=== PATIENT | female | born 1965 | race Caucasian/White ===

== ENCOUNTER → 2019-01-26 | Outpatient (CLI) | payer BC ==
--- NOTE | 2019-01-26 08:56 | US ---
EXAMINATION TYPE: US pelvic complete DATE OF EXAM: 01/26/2019 COMPARISON: NONE CLINICAL HISTORY: N92.0 Excessive/frequent menstruation w/reg cycle. Heavy painful periods x 1 year, fatigue, 0, history of fibroids and ovarian cysts TECHNIQUE: . Transabdominal sonographic images of the pelvis were acquired. Transvaginal sonographi c images were medically necessary to better assess the following anatomy: ovaries and endometrium Date of LMP: 01/20/2019 EXAM MEASUREMENTS: Uterus: 13.1 x 8.9 x 10.2 cm Endometrial Stripe: 0.5 cm Right Ovary: not seen Left Ovary: not seen 1. Uterus: anteverted, enlarged, bulky, heterogeneous with 7.7 x 6.9 x 7.7cm hypoechoic area, probab le fibroid 2. Endometrium: visualized portion appears wnl, limited due to large fibroid 3. Right Ovary: not seen 4. Left Ovary: not seen 5. Bilateral Adnexa: wnl 6. Posterior cul-de-sac: wnl IMPRESSION: Enlarged heterogenous likely fibroid uterus obscuring the endometrium. Visualized portion s of the endometrium are within normal limits. MRI pelvis could further assess the endometrial thickn ess and location of the probable uterine leiomyomas if clinically indicated.
== END | disposition home or self-care (01) ==
LOC: RADUSWWP 08:12
PROVIDERS: ATTEND Family Medicine
DX: N85.2 Hypertrophy of uterus (principal)
CPT/HCPCS: 76830; 76856

== ENCOUNTER → 2019-04-16 | Outpatient (CLI) | payer BC ==
--- NOTE | 2019-04-16 16:53 | US ---
EXAMINATION TYPE: US extremity nonvasc mass RT DATE OF EXAM: 04/16/2019 COMPARISON: NONE CLINICAL HISTORY: R22.41 Swelling, mass and lump, R leg. Patient states feeling a palpable on lower r ight medial leg x few years. Patient states when she states, it can get swollen. Area of concern scanned. No prominent masses or lesions seen. Fluid seen at area of concern anterio r to bone. Contralateral images taken. IMPRESSION: Targeted ultrasound shows no worrisome solid or cystic mass or abnormal fluid collection right lower extremity medially at area of patient concern.
== END | disposition home or self-care (01) ==
LOC: RADUSWWP 15:40
PROVIDERS: ATTEND Family Medicine
DX: R22.41 Localized swelling, mass and lump, right lower limb (principal)

== ENCOUNTER → 2019-04-25 | Outpatient (CLI) | payer BC ==
--- NOTE | 2019-04-25 11:01 | FL ---
EXAMINATION TYPE: FL barium enema DATE OF EXAM: 04/25/2019 COMPARISON: NONE HISTORY: Incomplete colonoscopy yesterday. TECHNIQUE: A double contrast barium enema study is performed. A total of 4 minutes 3 seconds of fluo roscopic time is provided during procedure. 28 spot images are saved. FINDINGS: Preprocedure clinical specialist medical device view of the abdomen shows overall non-obstructive bowel gas pattern. Giovanny e gas prominence of small and large bowel loops consistent with history of colonoscopy one day earlie r is noted. Enema study is performed. There is markedly redundant colon but successful filling to the cecum. Markedly redundant particularly sigmoid colon which is extremely long and tortuous makes evaluation f or polyps suboptimal. No obstructing or constricting lesion is present. No suspicious large polyps ar e clearly identified. Appendix is not opacified and terminal ileum is not refluxed. IMPRESSION: Suboptimal study due to marked redundancy of colon in evaluating for polyps. No obstructi ng or constricting lesion is seen. There is successful opacification to cecum noted.
== END | disposition home or self-care (01) ==
LOC: RADFLMAIN 08:35
PROVIDERS: ATTEND Surgery
DX: K63.5 Polyp of colon (principal)
CPT/HCPCS: 74270

== ENCOUNTER → 2019-04-26 | Outpatient (CLI) | payer BC ==
--- NOTE | 2019-04-26 13:03 | US ---
EXAMINATION TYPE: US thyroid st tissue head/neck DATE OF EXAM: 04/26/2019 COMPARISON: NONE CLINICAL HISTORY: E04.9 Goiter. GLAND SIZE: Right Lobe: cm Overall Parenchyma: Left Lobe: cm Overall Parenchyma: Isthmus Thickness: cm NODULES RIGHT: # of nodules measured on right: 1. X x cm nodule at the pole with margins; . This nodule is and shows . Prior size: x x cm 2. X x cm nodule at the pole with margins; . This nodule is and shows . Prior size: x x cm 3. X x cm nodule at the pole with margins; . This nodule is and shows . Prior size: x x cm 4. X x cm nodule at the pole with margins; . This nodule is and shows . Prior size: x x cm LEFT: # of nodules measured on left: 1. X x cm nodule at the pole with margins; . This nodule is and shows . Prior size: x x cm 2. X x cm nodule at the pole with margins; . This nodule is and shows . Prior size: x x cm 3. X x cm nodule at the pole with margins; . This nodule is and shows . Prior size: x x cm 4. X x cm nodule at the pole with margins; . This nodule is and shows . Prior size: x x cm ISTHMUS: # of nodules measured in the isthmus: 1. X x cm nodule at the pole with margins; . This nodule is and shows . Prior size: x x cm Bilateral neck scanned, no evidence of lymphadenopathy. IMPRESSION: EXAMINATION TYPE: US thyroid st tissue head/neck DATE OF EXAM: 04/26/2019 COMPARISON: NONE CLINICAL HISTORY: E04.9 Goiter. GLAND SIZE: Right Lobe: 4.9 x 1.2 x 1.6 cm Overall Parenchyma: homogenous Left Lobe: 4.6 x x1.3 x x1.3 cm Overall Parenchyma: heterogeneous Isthmus Thickness: 0.6 cm NODULES RIGHT: # of nodules measured on right: 2 1. 1.2 X 0.9 x 1.4 cm solid nodule at the lower pole with well-defined margins; . This nodule is w ider than tall and shows intranodular vascularity. Prior size: no prior 2. 0.7 X 0.8 x 0.8 cm solid nodule at the mid pole with well-defined margins; . This nodule is wide r than tall and shows no intranodular vascularity. Prior size: no prior LEFT: # of nodules measured on left: 0 ISTHMUS: # of nodules measured in the isthmus: 0 Bilateral neck scanned, no evidence of lymphadenopathy. IMPRESSION: Nonspecific thyroid nodularity demonstrated.
== END | disposition home or self-care (01) ==
LOC: RADUSWWP 12:22
PROVIDERS: ATTEND Family Medicine
DX: E04.2 Nontoxic multinodular goiter (principal)
CPT/HCPCS: 76536

== ENCOUNTER → 2019-09-06 | Outpatient (CLI) | payer BC ==
--- NOTE | 2019-09-07 13:33 | MM ---
Reason for exam: screening (asymptomatic). Last mammogram was performed 5 years and 8 months ago. History: Patient is nulliparous. Family history of breast cancer in maternal grandmother. Taking hormonal contraceptives for 12 years beginning at age 42. Physical Findings: A clinical breast exam by your physician is recommended on an annual basis and results should be correlated with mammographic findings. MG Screening Mammo w CAD Bilateral CC and MLO view(s) were taken. Prior study comparison: January 01, 2014, bilateral MG screening mammo w CAD. There are scattered fibroglandular densities. Benign appearing bilateral calcifications. No suspicious abnormality. No significant changes when compared with prior studies. ASSESSMENT: Benign, BI-RAD 2 RECOMMENDATION: Routine screening mammogram of both breasts in 1 year.
== END | disposition home or self-care (01) ==
LOC: RADMAMWWP 08:17
PROVIDERS: ATTEND Obstetrics & Gynecology
DX: Z12.31 Encounter for screening mammogram for malignant neoplasm of breast (principal)
CPT/HCPCS: 77067

== ENCOUNTER → 2020-04-07 | Outpatient (CLI) | payer BC ==
--- NOTE | 2020-04-07 14:03 | US ---
EXAMINATION TYPE: US thyroid st tissue head/neck DATE OF EXAM: 04/07/2020 COMPARISON: 04/26/2019 CLINICAL HISTORY: E04.9 Nontoxic goiter, unspecified. goiter GLAND SIZE: Right Lobe: 5.5 x 1.8 x 1.8 cm Overall Parenchyma: homogenous Left Lobe: 4.1 x 1.5 x 1.5 cm Overall Parenchyma: heterogeneous Isthmus Thickness: 0.5 cm NODULES RIGHT: # of nodules measured on right: 2 1. 1.6 X 1.0 x 1.4 cm hypoechoic solid nodule at the lower pole with well-defined margins; . This nodule is wider than tall and shows intranodular vascularity. Prior size: 1.2 x 0.9 x 1.4 cm 2. 0.8 X 0.8 x 0.8 cm hyperechoic solid nodule at the mid pole with well-defined margins; . This no dule is wider than tall and shows no intranodular vascularity. Prior size: 0.7 x 0.8 x 0.8 cm LEFT: # of nodules measured on left: 0 ISTHMUS: # of nodules measured in the isthmus: 0 Bilateral neck scanned, no evidence of lymphadenopathy. IMPRESSION: There is a nodule greater than 1 cm within the right lobe thyroid. This may be mildly enlarged from c omparison.
== END | disposition home or self-care (01) ==
LOC: RADUSWWP 13:32
PROVIDERS: ATTEND Nurse Practitioner Family
DX: E04.1 Nontoxic single thyroid nodule (principal)
CPT/HCPCS: 76536

== ENCOUNTER → 2020-12-26 | Outpatient (CLI) | payer BC ==
--- NOTE | 2020-12-29 11:15 | MM ---
Reason for exam: screening (asymptomatic). Last mammogram was performed 1 year and 4 months ago. History: Patient is nulliparous. Family history of breast cancer in maternal grandmother at age 70. Took hormonal contraceptives for 12 years beginning at age 42. Physical Findings: A clinical breast exam by your physician is recommended on an annual basis and results should be correlated with mammographic findings. MG Screening Mammo w CAD Bilateral CC and MLO view(s) were taken. Prior study comparison: September 06, 2019, bilateral MG screening mammo w CAD. January 01, 2014, bilateral MG screening mammo w CAD. There are scattered fibroglandular densities. There are benign appearing round calcifications bilaterally. There is no discrete abnormality. ASSESSMENT: Benign, BI-RAD 2 RECOMMENDATION: Routine screening mammogram of both breasts in 1 year.
== END | disposition home or self-care (01) ==
LOC: RADMAMWWP 09:18
PROVIDERS: ATTEND Obstetrics & Gynecology
DX: Z12.31 Encounter for screening mammogram for malignant neoplasm of breast (principal); Z80.3 Family history of malignant neoplasm of breast
CPT/HCPCS: 77067

== ENCOUNTER → 2021-03-11 | Outpatient (CLI) | payer BC ==
--- NOTE | 2021-03-11 10:15 | US ---
EXAMINATION TYPE: US pelvic complete DATE OF EXAM: 03/11/2021 COMPARISON: 01/26/2019 CLINICAL HISTORY: N92.0 Menorrhagia, D25.9. Fibroid DUB TECHNIQUE: Transabdominal (TA). EXAM MEASUREMENTS: Uterus: 12.3 x 10.6 x 10.6 cm Endometrial Stripe: Obscured by fibroid Right Ovary: 2.3 x 1.6 x 1.7 cm Left Ovary: 1.9 x 1.8 x 2.0 cm 1. Uterus: Anteverted Heterogenous enlarged fibroid measuring 10.4 x 7.3 x 10.9 cm 2. Endometrium: Obscured 3. Right Ovary: wnl 4. Left Ovary: wnl 5. Bilateral Adnexa: wnl 6. Posterior cul-de-sac: wnl IMPRESSION: 1. Enlarged uterus. Discrete underlying fibroids are not identified although large fibroids are suspe cted. If additional evaluation would be of benefit, MRI could be performed.
== END | disposition home or self-care (01) ==
LOC: RADUSWWP 08:14
PROVIDERS: ATTEND Obstetrics & Gynecology
DX: N85.2 Hypertrophy of uterus (principal); D25.9 Leiomyoma of uterus, unspecified; N92.0 Excessive and frequent menstruation with regular cycle
CPT/HCPCS: 76856

== ENCOUNTER → 2021-03-13 | Outpatient (CLI) | payer BC | END | disposition home or self-care (01) | LOC: LABWHC1 08:55 | PROVIDERS: ATTEND Obstetrics & Gynecology | DX: Z13.29 Encounter for screening for other suspected endocrine disorder (principal); N92.6 Irregular menstruation, unspecified | CPT/HCPCS: 36415; 84439; 84443; 84479 ==

== ENCOUNTER → 2021-06-26 | Outpatient (CLI) | payer BC ==
--- NOTE | 2021-06-28 22:21 | US ---
EXAMINATION TYPE: US pelvic complete DATE OF EXAM: 06/26/2021 COMPARISON: 03/11/2021 CLINICAL HISTORY: 55-year-old female D25.9 Leiomyoma of uterus, unspecified. Hx of fibroid TECHNIQUE: Transabdominal (TA) Date of LMP: 29 days ago FINDINGS: EXAM MEASUREMENTS: Uterus: 14.6 x 8.8 x 9.9 cm Endometrial Stripe: 0.8 cm Right Ovary: 2.2 x 1.7 x 2.2 cm Left Ovary: 2.7 x 1.4 x 2.5 cm 1. Uterus: Anteverted. The myometrium is heterogeneous. There is a large fibroid that measures 10. 4 x 9.8 x 9.2cm (relatively similar to prior. 2. Endometrium: difficult to evaluate due to fibroid 3. Right Ovary: Dominant follicle = 1.2cm 4. Left Ovary: follicle noted 5. Bilateral Adnexa: appears wnl 6. Posterior cul-de-sac: wnl IMPRESSION: 1. Large fibroid measuring up to 10.4 cm that fills the fundus of the uterus and makes it difficult t o clearly delineate the endometrial stripe. It may have a submucosal component. 2. Incidental 1.2 cm dominant follicle right ovary.
== END | disposition home or self-care (01) ==
LOC: RADUSWWP 16:29
PROVIDERS: ATTEND Obstetrics & Gynecology
DX: D25.9 Leiomyoma of uterus, unspecified (principal)
CPT/HCPCS: 76856